=== PATIENT | female | born 1935 | race Caucasian/White ===

== ENCOUNTER 2023-01-05 23:34 | Inpatient (IN) ==
[2023-01-05] MEDS ORDERED: IOPAMIDOL 100 ML BOTTLE IV ONE (23:35)
--- NOTE | 2023-01-05 23:56 | Emergency Department Note ---
HPI General Chief complaint: Nausea/Vomiting/Diarrhea Stated complaint: vomiting Time Seen by Provider: 01/05/23 23:55 Source: patient and EMS Mode of arrival: ambulatory Limitations: no limitations History of Present Illness HPI Narrative: Patient is an 87-year-old female with a complex history, but importantly history of abdominal surgery who presents to the emergency department due to nausea and vomiting. Patient states that she had a meal of beans and sausage for lunch, and soon after that began to have a pressure-like abdominal pain. She states that this is in the epigastric region and without radiation. She states that she then had a large bowel movement which seemed to improve her symptoms. She t hen developed nausea and vomiting. EMS was then called. They gave her Zofran. She states that she felt better by the time she arrived to the emergency department, but then started to have pressure-like abdominal pain again, as well as nausea. She denies any other symptoms or concerns. Related Data Home Medications Medication Instructions Recorded Confirmed latanoprost 0.005 % eye drops 1 drp ophthalmic (eye) QPM 03/30/19 01/05/23 sennosides 8.6 mg tablet (Senna 8.6 mg PO BID PRN 03/30/19 01/05/23 Lax) calcium carbonate 600 mg calcium 1,200 mg PO QDAY 09/09/20 01/05/23 (1,500 mg) tablet cholecalciferol (vitamin D3) 50 50 mcg PO QDAY 09/09/20 01/05/23 mcg (2,000 unit) capsule multivitamin with minerals 1 tab PO QDAY 09/09/20 01/05/23 (Multiple Vitamin-Minerals tablet) billberry PO 10/16/20 01/05/23 vit C 250 mg-vit E 90 mg-zinc 40 1 tab PO QAM AND QHS 10/16/20 01/05/23 mg-copper 1 [id number] capsule (PreserVision AREDS-2) potassium chloride 20 mEq 20 meq PO QDAY 06/01/22 01/05/23 tablet,extended release bumetanide 2 mg tablet 2 mg PO QDAY 09/23/22 01/05/23 Previous Rx's Medication Instructions Recorded leg brace (Ankle Support) #2 ea 10/01/22 methotrexate sodium 2.5 mg tablet 15 mg PO QWEEK #24 tabs 12/15/22 folic acid 1 mg tablet 2 mg PO QDAY #180 tabs 12/21/22 Allergies Allergy/AdvReac Type Severity Reaction Status Date / Time Fludrocortisone Allergy Intermediate Unknown Verified 01/05/23 08:52 jitendra Allergy Intermediate Unknown Verified 01/05/23 08:52 Procaine [From Novocain] Allergy Intermediate Vomiting Verified 01/05/23 08:52 aloe vera AdvReac Intermediate skin Verified 01/05/23 08:52 irritation bacitracin AdvReac Intermediate skin Verified 01/05/23 08:52 [From Neosporin irritant ([id number])] Neomycin AdvReac Intermediate skin Verified 01/05/23 08:52 [From Neosporin irritant ([id number])] polymyxin B AdvReac Intermediate skin Verified 01/05/23 08:52 [From Neosporin irritant ([id number])] Review of Systems ROS ROS Narrative: Narrative: Constitutional: Denies fever or weakness ENT ED: Denies throat pain or rhinorrhea Cardiovascular: Denies chest pain, dyspnea on exertion, orthopnea or edema Respiratory: Denies shortness of breath or cough Gastrointestinal: Reports abdominal pain, nausea and vomiting; Denies diarrhea, constipation, hematochezia, melena or hematemesis Musculoskeletal: Denies back pain or myalgia Integumentary: Denies rash or lesions Neurological: Denies headache, weakness, numbness or dizziness PFS Narrative Patient History Narrative: Narrative: Medical/Surgical/Family History All Active Problems (Updated 01/06/23 @ 05:02 by Prasanth Madsen MD) Midgut volvulus (Acute) Abdominal pain (Acute) Nausea & vomiting (Acute) Abdominal pain (Acute) Syncope due to orthostatic hypotension (Chronic) Fibula fracture (Chronic) Insomnia (Chronic) Polymyalgia rheumatica (Chronic) Dizzy spells (Chronic) Hx of appendectomy (Chronic) History of left oophorectomy (Chronic) Ankle sprain and strain (Chronic) Right foot strain (Chronic) Osteoporosis (Chronic) Routine gynecological examination (Chronic) Hypovitaminosis D (Chronic) Left wrist pain (Chronic) Rupture of tendon of finger (Chronic) Pedal edema (Chronic) Osteoarthritis (Chronic) Wrist pain, chronic (Chronic) penitentiary (current) use of systemic steroids (Chronic) History of calcium pyrophosphate deposition disease (CPPD) (Chronic) Inflammatory arthritis (Chronic) Encounter for long-term current use of high risk medication (Chronic) Pain and swelling of toe of right foot (Chronic ~08/16/20) Rheumatoid arthritis (Chronic) Exudative age-related macular degeneration, bilateral, stage unspecified (Chronic) Livedo reticularis (Chronic) Orthostatic hypotension (Chronic) Acute on chronic diastolic (congestive) heart failure (Chronic) Edema, lower extremity (Chronic) GERD (gastroesophageal reflux disease) (Chronic) History of right oophorectomy (Chronic) History of surgery on right wrist (Chronic) History of hand surgery (Chronic) Pain in right toe(s) (Chronic) Hypotension (Chronic) Chronic cough (Chronic) Vitamin D deficiency (Acute) Pain in wrist (Acute) Pulmonary infiltrate (Acute) Bronchiectasis (Chronic) Heart murmur (Acute) Acute URI (Acute) Viral illness (Acute) History of COVID-19 (Acute) Decreased GFR (Acute) Disorder of diaphragm (Chronic) Difficulty clearing secretions (Chronic) Calcium pyrophosphate deposition disease (CPPD) (Acute) Bilateral foot-drop (Acute) Medical History Acute on chronic diastolic (congestive) heart failure Ankle sprain and strain Chronic cough Decreased GFR Dizzy spells 03/16 Edema, lower extremity Encounter for long-term current use of high risk medication Exudative age-related macular degeneration, bilateral, stage unspecified Fibula fracture Fracture closed, fibula, shaft GERD (gastroesophageal reflux disease) Heart murmur History of calcium pyrophosphate deposition disease (CPPD) History of COVID-19 Hypotension Inflammatory arthritis Insomnia 2014 Left wrist pain Livedo reticularis penitentiary (current) use of systemic steroids Long-term current use of steroids Orthostatic hypotension Osteoarthritis Pain and swelling of toe of right foot (~08/16/20) Pain in right toe(s) Polymyalgia rheumatica Pulmonary infiltrate Rheumatoid arthritis Right foot strain Rupture of tendon of finger Syncope due to orthostatic hypotension Wrist pain, chronic Surgical History History of hand surgery Left finger tendon repair History of left oophorectomy 1968 History of right oophorectomy History of surgery on right wrist Cyst Removal Hx of appendectomy 1968 Family History Sister Malignant neoplasm of breast Heart problem Mother Diabetes mellitus type I Father Parkinsons Brother Heart problem Son Brain aneurysm Other Cancer Glaucoma Macular degeneration Social History Smoking Status: Never smoker Alcohol Intake Frequency: does not drink Substance Use: does not use Exam Narrative Narrative: Narrative: General Limitations: no limitations General appearance: Present alert and in no apparent distress; Absent anxious, appears intoxicated or sleepy Head Head: Present atraumatic and normocephalic Eye Eye: Present EOMI; Absent scleral icterus or nystagmus ENT ENT: Present mucous membranes moist; Absent nasal congestion Neck Neck: Present full ROM and trachea midline Chest Chest: Present normal inspection and symmetric chest wall rise Respiratory Respiratory: Present normal lung sounds bilaterally; Absent respiratory distress, rales/crackles, wheezes, stridor or accessory muscle use Cardiovascular Cardiovascular: Present regular rate, normal rhythm and normal heart sounds Adbominal Abdominal: Present soft, tenderness, guarding and normal bowel sounds; Absent distention, rebound or rigidity Extremities Extremities: Present normal inspection and full ROM Back Back: Present normal inspection and full ROM; Absent CVA tenderness (R) or CVA tenderness (L) Neurological Neurological: Present alert and oriented X3 Psychiatric Psychiatric: Present normal affect and normal mood Skin Skin: Present warm (WNL), dry and normal color Course Vital Signs Vital signs: Vital Signs Temperature 97.4 F 01/05/23 23:35 Pulse Rate 65 01/05/23 23:35 Respiratory Rate 16 01/05/23 23:35 Blood Pressure 130/66 01/05/23 23:35 Pulse Oximetry (%) 100 01/05/23 23:35 Oxygen Delivery Method Room Air 01/05/23 23:35 Temperature 97.4 F 01/05/23 23:35 Pulse Rate 63 01/06/23 04:56 Respiratory Rate 14 01/06/23 04:56 Blood Pressure 141/73 01/06/23 04:46 Pulse Oximetry (%) 96 01/06/23 04:56 Oxygen Delivery Method Room Air 01/05/23 23:35 [facility] MDM Narrative Medical decision making narrative: Narrative: Patient is an 87-year-old female who presents to the emergency department due to nausea, vomiting, and abdominal pain. Differential diagnoses include small bowel obstruction, gastroenteritis, gastritis, peptic ulcer disease, pancreatitis, urinary tract infection, and gallbladder disease. 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 There is also significant and you have in the mesenteric fat. Patient's lactate is not elevated. Labs are also otherwise reassuring. I have called and spoke to Dr. Lopez with seen patient and agrees with admission at this time. Lab Data 01/06/23 00:18 01/06/23 00:18 Labs: Lab Results 01/06/23 01/06/23 01/06/23 Range/Units 00:18 00:18 00:18 WBC 8.6 (4.5-11.0) K/mcL RBC 3.59 (3.59-5.38) M/mcL Hgb 11.7 (11.2-15.7) g/dL Hct 36.2 (34.1-44.9) % MCV 100.8 H (80.0-100.0) fL MCH 32.6 (26.0-34.0) pg MCHC 32.3 (31.0-36.0) g/dL RDW 14.4 (11.5-14.5) % Plt Count 157 (140-440) K/mcL MPV 12.7 H (8.8-12.5) fL Immature Gran % (Auto) 0.3 (0.0-0.5) % Neut % (Auto) 82.2 H (38.0-78.0) % Lymph % (Auto) 9.2 L (15.5-49.0) % [place] % (Auto) 6.7 (1.0-12.0) % Eos % (Auto) 1.0 (0.0-7.0) % Baso % (Auto) 0.6 (0.0-2.0) % Lymph # (Auto) 0.79 L (1.50-4.80) K/mcL [place] # (Auto) 0.58 (0.10-0.90) K/mcL Eos # (Auto) 0.09 (0.00-0.70) K/mcL Baso # (Auto) 0.05 (0.00-0.30) K/mcL Immature Gran # 0.03 (0.00-0.05) K/mcl Absolute Neutrophils 7.07 (1.80-8.00) K/mcL POC VBG pH (7.32-7.42) POC VBG pCO2 at Temp (41-51) POC VBG pO2 (25-40) POC VBG HCO3 (24-28) POC VBG Total CO2 (25-29) POC Venous O2 Sat (40-70) POC VBG Base Excess (-2-2) VBG Lactic Acid (0.5-2) Sodium 132 L (133-145) mmol/L Potassium 3.9 (3.3-5.1) mmol/L Chloride 99 (96-108) mmol/L Carbon Dioxide 26 (22-30) mmol/L Anion Gap 7.0 L (8.0-16.0) BUN 19 (8-23) mg/dL Creatinine 0.9 (0.6-1.1) mg/dL GFR Calculation 57 Glucose 132 H (70-105) mg/dL Calcium 8.8 (8.6-10.4) mg/dL Total Bilirubin 0.3 (0.1-1.0) mg/dL AST 21 (<32) U/L ALT 14 (<40) U/L Alkaline Phosphatase 68 (39-117) U/L Troponin T < 0.01 (<0.03) ng/mL Total Protein 5.6 L (5.9-8.4) gm/dL Albumin 3.3 (3.2-5.2) gm/dL Globulin 2.3 (2.2-3.7) gm/dL Albumin/Globulin Ratio 1.4 (1.0-2.3) Lipase 52 (7-60) U/L 01/06/23 01/06/23 Range/Units 02:17 03:46 WBC (4.5-11.0) K/mcL RBC (3.59-5.38) M/mcL Hgb (11.2-15.7) g/dL Hct (34.1-44.9) % MCV (80.0-100.0) fL MCH (26.0-34.0) pg MCHC (31.0-36.0) g/dL RDW (11.5-14.5) % Plt Count (140-440) K/mcL MPV (8.8-12.5) fL Immature Gran % (Auto) (0.0-0.5) % Neut % (Auto) (38.0-78.0) % Lymph % (Auto) (15.5-49.0) % [place] % (Auto) (1.0-12.0) % Eos % (Auto) (0.0-7.0) % Baso % (Auto) (0.0-2.0) % Lymph # (Auto) (1.50-4.80) K/mcL [place] # (Auto) (0.10-0.90) K/mcL Eos # (Auto) (0.00-0.70) K/mcL Baso # (Auto) (0.00-0.30) K/mcL Immature Gran # (0.00-0.05) K/mcl Absolute Neutrophils (1.80-8.00) K/mcL POC VBG pH 7.36 (7.32-7.42) POC VBG pCO2 at Temp 52.4 H (41-51) POC VBG pO2 28 (25-40) POC VBG HCO3 29.6 H (24-28) POC VBG Total CO2 31.0 H (25-29) POC Venous O2 Sat 49.0 (40-70) POC VBG Base Excess 4.0 H* (-2-2) VBG Lactic Acid 0.8 1.5 (0.5-2) Sodium (133-145) mmol/L Potassium (3.3-5.1) mmol/L Chloride (96-108) mmol/L Carbon Dioxide (22-30) mmol/L Anion Gap (8.0-16.0) BUN (8-23) mg/dL Creatinine (0.6-1.1) mg/dL GFR Calculation Glucose (70-105) mg/dL Calcium (8.6-10.4) mg/dL Total Bilirubin (0.1-1.0) mg/dL AST (<32) U/L ALT (<40) U/L Alkaline Phosphatase (39-117) U/L Troponin T (<0.03) ng/mL Total Protein (5.9-8.4) gm/dL Albumin (3.2-5.2) gm/dL Globulin (2.2-3.7) gm/dL Albumin/Globulin Ratio (1.0-2.3) Lipase (7-60) U/L EKG Data EKG #1: EKG attestation: Yes I reviewed and interpreted this EKG. EKG results narrative: Sinus bradycardia with a rate of 57, equivocal axis, NE of 258, QRS of 118, QTc of 430, T wave flattening in aVL, and absence of ST elevation or depression. Discharge Plan Patient/Caregiver Discharge Instructions Pt seen by [employer]/PA only: No Clinical Impression: Midgut volvulus, Abdominal pain, Nausea & vomiting Patient Disposition: Xfer As Inpt ([facility]) Follow up with: Roland Alvarado DO [Primary Care Provider] - Prescriptions: No Action (DME) Ankle Support Misc See Rx Instructions .Route Qty: 2 0RF Rx Instructions: As directed methotrexate sodium 2.5 mg tablet 15 mg PO QWEEK Qty: 24 0RF latanoprost 0.005 % drops 1 drp OPHTHALMIC QPM sennosides [Senna Lax] 8.6 mg tablet 8.6 mg PO BID PRN multivitamin with minerals [Multiple Vitamin-Minerals] Tablet 1 tab PO QDAY calcium carbonate 600 mg calcium (1,500 mg) tablet 1,200 mg PO QDAY cholecalciferol (vitamin D3) 50 mcg (2,000 unit) capsule 50 mcg PO QDAY potassium chloride 20 mEq tablet extended release 20 meq PO QDAY bumetanide 2 mg tablet 2 mg PO QDAY billberry PO PreserVision AREDS-2 250-90-40-1 mg capsule 1 tab PO QAM AND QHS folic acid 1 mg tablet 2 mg PO QDAY Qty: 180 0RF
[2023-01-06] MEDS ORDERED: ONDANSETRON 4 MG ODT TABLET SL ONE (00:10)
[2023-01-06] MEDS ORDERED: 0.9 % SODIUM CHLORIDE 500 ML IV ONE (00:31)
[2023-01-06] MEDS ORDERED: METOCLOPRAMIDE 10 MG/2 ML VIAL IV ONE (00:31)
[2023-01-06 02:09] LABS: Basophils # (Auto) 0.05 K/mcL (0.00-0.30); Basophils % (Auto) 0.6 % (0.0-2.0); Eosinophils # (Auto) 0.09 K/mcL (0.00-0.70); Hematocrit 36.2 % (34.1-44.9); Hemoglobin 11.7 g/dL (11.2-15.7); Lymphocytes # (Auto) 0.79 K/mcL (1.50-4.80); Lymphocytes % (Auto) 9.2 % (15.5-49.0); Mean Cell Volume 100.8 fL (80.0-100.0); Mean Corpuscular HGB Conc 32.3 g/dL (31.0-36.0); Mean Platelet Volume 12.7 fL (8.8-12.5); Monocytes # (Auto) 0.58 K/mcL (0.10-0.90); Monocytes % (Auto) 6.7 % (1.0-12.0); Neutrophils % (Auto) 82.2 % (38.0-78.0); Platelet Count 157 K/mcL (140-440); RBC 3.59 M/mcL (3.59-5.38); Red Cell Distribution Width 14.4 % (11.5-14.5); WBC 8.6 K/mcL (4.5-11.0)
[2023-01-06 02:29] LABS: ALT/SGPT 14 U/L (<40); AST/SGOT 21 U/L (<32); Albumin 3.3 gm/dL (3.2-5.2); Albumin/Globulin Ratio 1.4 (1.0-2.3); Alkaline Phosphatase 68 U/L (39-117); Bilirubin,Total 0.3 mg/dL (0.1-1.0); Blood Urea Nitrogen 19 mg/dL (8-23); Calcium 8.8 mg/dL (8.6-10.4); Carbon Dioxide 26 mmol/L (22-30); Chloride 99 mmol/L (96-108); Globulin 2.3 gm/dL (2.2-3.7); Glomerular Filtration Rate 57; Glucose 132 mg/dL (70-105)
[2023-01-06] MEDS ORDERED: PIPERACILLIN SODIUM/TAZOBACTAM 3.375 GM in DEXTROSE 5% IN WATER 50 ML IV ONE (02:38)
--- NOTE | 2023-01-06 03:29 | General Surgery Consult Note ---
HPI Date of Consult Consult Date: 01/06/23 Requesting physician: Prasanth Madsen Primary Care Provider: Roland Alvarado DO Consult Narrative Chief complaint: Abdominal Pain Reason for consult: Abdominal Pain History of present illness: Kae is seen in consultation tonight after presenting to the ER with abrupt onset of pressure and pain in the abdomen that she feels developed in direct relationship to a large meal of kidney beans that she had just prior to that. She had vomiting at the house with severe pain and pressure in the abdomen followed by an explosive BM. 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 She received a dose of Reglan but no narcotic and since that time feels she has had full resolution of the pressure and pain she was having and now feels as if it is fully resolved . She has no pain currently and the severe pressure sensation has resolved as well. Vital signs have been normal here and her Venous lactate was normal at 0.8 She has a remote history of abdominal surgery with an Oophorectomy many years ago but no abdominal operations since. She is not on any oral anticoagulants. She has had several orthopedic operations but no recent surgery and she lives at home alone. cc:: CC: Constitutional Additional comments: has been well, denies any recent changes Cardiovascular Additional comments: denies recent chest pains or other issues Respiratory Additional comments: no recent SOB or cough Gastrointestinal Additional comments: see HPI Genitourinary Additional comments: no changes Musculoskeletal Additional comments: no recent changes Integumentary Additional comments: no recent changes Neurological Additional comments: no changes Psychiatric Additional comments: no recent issues or changes Hematologic/Lymphatic Additional comments: no known bleeding concerns PFSH PFSH All Active Problems (Updated 01/06/23 @ 03:36 by Johnny Lopez MD) Abdominal pain (Acute) Syncope due to orthostatic hypotension (Chronic) Fibula fracture (Chronic) Insomnia (Chronic) Polymyalgia rheumatica (Chronic) Dizzy spells (Chronic) Hx of appendectomy (Chronic) History of left oophorectomy (Chronic) Ankle sprain and strain (Chronic) Right foot strain (Chronic) Osteoporosis (Chronic) Routine gynecological examination (Chronic) Hypovitaminosis D (Chronic) Left wrist pain (Chronic) Rupture of tendon of finger (Chronic) Pedal edema (Chronic) Osteoarthritis (Chronic) Wrist pain, chronic (Chronic) 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) History of calcium pyrophosphate deposition disease (CPPD) (Chronic) Inflammatory arthritis (Chronic) Encounter for long-term current use of high risk medication (Chronic) Pain and swelling of toe of right foot (Chronic ~08/16/20) Rheumatoid arthritis (Chronic) Exudative age-related macular degeneration, bilateral, stage unspecified (Chronic) Livedo reticularis (Chronic) Orthostatic hypotension (Chronic) Acute on chronic diastolic (congestive) heart failure (Chronic) Edema, lower extremity (Chronic) GERD (gastroesophageal reflux disease) (Chronic) History of right oophorectomy (Chronic) History of surgery on right wrist (Chronic) History of hand surgery (Chronic) Pain in right toe(s) (Chronic) Hypotension (Chronic) Chronic cough (Chronic) Vitamin D deficiency (Acute) Pain in wrist (Acute) Pulmonary infiltrate (Acute) Bronchiectasis (Chronic) Heart murmur (Acute) Acute URI (Acute) Viral illness (Acute) History of COVID-19 (Acute) Decreased GFR (Acute) Disorder of diaphragm (Chronic) Difficulty clearing secretions (Chronic) Calcium pyrophosphate deposition disease (CPPD) (Acute) Bilateral foot-drop (Acute) Medical History Acute on chronic diastolic (congestive) heart failure Ankle sprain and strain Chronic cough Decreased GFR Dizzy spells 03/16 Edema, lower extremity Encounter for long-term current use of high risk medication Exudative age-related macular degeneration, bilateral, stage unspecified Fibula fracture Fracture closed, fibula, shaft GERD (gastroesophageal reflux disease) Heart murmur History of calcium pyrophosphate deposition disease (CPPD) History of COVID-19 Hypotension Inflammatory arthritis Insomnia 2014 Left wrist pain Livedo reticularis [facility] (current) use of systemic steroids Long-term current use of steroids Orthostatic hypotension Osteoarthritis Pain and swelling of toe of right foot (~08/16/20) Pain in right toe(s) Polymyalgia rheumatica Pulmonary infiltrate Rheumatoid arthritis Right foot strain Rupture of tendon of finger Syncope due to orthostatic hypotension Wrist pain, chronic Surgical History History of hand surgery Left finger tendon repair History of left oophorectomy 1968 History of right oophorectomy History of surgery on right wrist Cyst Removal Hx of appendectomy 1968 Family History Sister Malignant neoplasm of breast Heart problem Mother Diabetes mellitus type I Father Parkinsons Brother Heart problem Son Brain aneurysm Other Cancer Glaucoma Macular degeneration Social History marital status: occupational status: retired other: Children-1 physical activity: other details: stretching smoking status: Never smoker alcohol intake frequency: does not drink substance use type: does not use MEDS/ALLERGIES Home Medications and Allergies Home Medications Medication Instructions Recorded Confirmed Type latanoprost 0.005 % eye drops 1 drp ophthalmic (eye) QPM 03/30/19 01/05/23 History sennosides 8.6 mg tablet (Senna 8.6 mg PO BID PRN 03/30/19 01/05/23 History Lax) calcium carbonate 600 mg calcium 1,200 mg PO QDAY 09/09/20 01/05/23 History (1,500 mg) tablet cholecalciferol (vitamin D3) 50 50 mcg PO QDAY 09/09/20 01/05/23 History mcg (2,000 unit) capsule multivitamin with minerals 1 tab PO QDAY 09/09/20 01/05/23 History (Multiple Vitamin-Minerals tablet) billberry PO 10/16/20 01/05/23 History vit C 250 mg-vit E 90 mg-zinc 40 1 tab PO QAM AND QHS 10/16/20 01/05/23 History mg-copper 1 [id number] capsule (PreserVision AREDS-2) potassium chloride 20 mEq 20 meq PO QDAY 06/01/22 01/05/23 History tablet,extended release bumetanide 2 mg tablet 2 mg PO QDAY 09/23/22 01/05/23 History leg brace (Ankle Support) #2 ea 10/01/22 01/05/23 Rx methotrexate sodium 2.5 mg tablet 15 mg PO QWEEK #24 tabs 12/15/22 01/05/23 Rx folic acid 1 mg tablet 2 mg PO QDAY #180 tabs 12/21/22 01/05/23 Rx Allergies Allergy/AdvReac Type Severity Reaction Status Date / Time Fludrocortisone Allergy Intermediate Unknown Verified 01/05/23 08:52 jitendra Allergy Intermediate Unknown Verified 01/05/23 08:52 Procaine [From Novocain] Allergy Intermediate Vomiting Verified 01/05/23 08:52 aloe vera AdvReac Intermediate skin Verified 01/05/23 08:52 irritation bacitracin AdvReac Intermediate skin Verified 01/05/23 08:52 [From Neosporin irritant ([id number])] Neomycin AdvReac Intermediate skin Verified 01/05/23 08:52 [From Neosporin irritant ([id number])] polymyxin B AdvReac Intermediate skin Verified 01/05/23 08:52 [From Neosporin irritant ([id number])] Physical Examination Vital Signs Vital signs: Temp Pulse Resp BP Pulse Ox O2 Del Method 97.4 F 69 26 H 120/66 97 Room Air 01/05/23 23:35 01/06/23 02:45 01/06/23 02:45 01/06/23 01:05 01/06/23 02:45 01/05/23 23:35 General physical appearance General physical exam: other (looks non toxic, fully conversant ) Eyes Eye exam: normal ocular movement; negative icteric ENT ENT exam: other (normal facial exam ) Head Head exam IM: Present atraumatic, normal inspection and normocephalic Neck Neck exam: trachea midline and no lymphadenopathy Cardiovascular Cardiovascular exam IM: Present normal rate and rhythm Respiratory Respiratory exam: normal respiratory effort Abdomen Abdomen: Present soft (belly soft and non tender, non distended, no mass or ot her significant finding of note ) Integumentary Integumentary: Present other (normal appearing intact skin ) Neurologic Neurologic: Present other (grossly intact ) Psychiatric Psychiatric: Present oriented to time, oriented to person and oriented to place Results Labs 01/06/23 00:18 01/06/23 00:18 Labs: Abnormal lab results 01/06/23 01/06/23 01/06/23 Range/Units 00:18 00:18 02:17 MCV 100.8 H (80.0-100.0) fL MPV 12.7 H (8.8-12.5) fL Neut % (Auto) 82.2 H (38.0-78.0) % Lymph % (Auto) 9.2 L (15.5-49.0) % Lymph # (Auto) 0.79 L (1.50-4.80) K/mcL POC VBG pCO2 at Temp 52.4 H (41-51) POC VBG HCO3 29.6 H (24-28) POC VBG Total CO2 31.0 H (25-29) POC VBG Base Excess 4.0 H* (-2-2) Sodium 132 L (133-145) mmol/L Anion Gap 7.0 L (8.0-16.0) Glucose 132 H (70-105) mg/dL Total Protein 5.6 L (5.9-8.4) gm/dL Diabetes panel 01/06/23 Range/Units 00:18 Sodium 132 L (133-145) mmol/L Potassium 3.9 (3.3-5.1) mmol/L Chloride 99 (96-108) mmol/L Carbon Dioxide 26 (22-30) mmol/L BUN 19 (8-23) mg/dL Creatinine 0.9 (0.6-1.1) mg/dL Glucose 132 H (70-105) mg/dL Calcium 8.8 (8.6-10.4) mg/dL AST 21 (<32) U/L ALT 14 (<40) U/L Alkaline Phosphatase 68 (39-117) U/L Total Protein 5.6 L (5.9-8.4) gm/dL Albumin 3.3 (3.2-5.2) gm/dL Calcium panel 01/06/23 Range/Units 00:18 Calcium 8.8 (8.6-10.4) mg/dL Albumin 3.3 (3.2-5.2) gm/dL Pituitary panel 01/06/23 Range/Units 00:18 Sodium 132 L (133-145) mmol/L Potassium 3.9 (3.3-5.1) mmol/L Chloride 99 (96-108) mmol/L Carbon Dioxide 26 (22-30) mmol/L BUN 19 (8-23) mg/dL Creatinine 0.9 (0.6-1.1) mg/dL Glucose 132 H (70-105) mg/dL Calcium 8.8 (8.6-10.4) mg/dL Adrenal panel 01/06/23 Range/Units 00:18 Sodium 132 L (133-145) mmol/L Potassium 3.9 (3.3-5.1) mmol/L Chloride 99 (96-108) mmol/L Carbon Dioxide 26 (22-30) mmol/L BUN 19 (8-23) mg/dL Creatinine 0.9 (0.6-1.1) mg/dL Glucose 132 H (70-105) mg/dL Calcium 8.8 (8.6-10.4) mg/dL Total Bilirubin 0.3 (0.1-1.0) mg/dL AST 21 (<32) U/L ALT 14 (<40) U/L Alkaline Phosphatase 68 (39-117) U/L Total Protein 5.6 L (5.9-8.4) gm/dL Albumin 3.3 (3.2-5.2) gm/dL All other labs normal. A/P Assessment and plan (1) Abdominal pain: Assessment and plan: Probable adhesion related intra abdominal event with concerning findings on CT She had abrupt onset earlier this evening and now feels as though she has had full resolution with resolution of pain and both a normal exam and normal venous lactate at this time Concerns and options are discussed with her at length tonight regarding proceeding to the OR right now vs a period of close in hospital observation now that she feels and seems clinically resolved. Given that her presenting symptoms seem resolved, she would prefer to give this some time and see how things go over the next few hours rather than proceeding urgently to the OR and this seems reasonable given how benign she currently appears Admit to the hospital for close observation along with intermittently repeated venous lactate along with NGT bowel decompression, bowel rest, judicious IVFs and will ask for a Medical Consult in the AM given some of her associated medical issues. Will continue to hold any narcotic for now and will initiate IV ABs empirically as well. Status: Acute Time Spent With Patient Time: Total time spent is greater than 50% in coordination of care (as documented) at patient's floor/unit and/or counseling patient:
[2023-01-06] MEDS ORDERED: ONDANSETRON 4 MG/2 ML VIAL IV PRN (04:02)
[2023-01-06] MEDS: PIPERACILLIN SODIUM/TAZOBACTAM 3.375 GM in DEXTROSE 5% IN WATER 50 ML IV SCH ×4 (04:46→21:53)
--- NOTE | 2023-01-06 05:32 | Cat Scan Report ---
INDICATION: Abdominal pain/tenderness, diffuse COMPARISON: Previous contrast enhanced CT scan dated 09/21/2014 TECHNIQUE: Axial images were obtained through the abdomen and pelvis. Sagittally and coronally reformatted images. 80 mL Isovue 370 injected intravenously. FINDINGS: Examination was initially interpreted by [facility] There is dilatation of the stomach. Stomach is fluid filled. Proximal duodenum is dilated and filled with fluid. There is a volvulus which involves the superior mesenteric artery and vein. The superior mesenteric vein was a large caliber vessel on prior CT scan but is very difficult to visualize presently consistent with mechanical compression from this volvulus. There is prominent mesenteric edema. There is some small bowel wall thickening but no nonperfused small bowel segments are demonstrated. Patient is at risk for small bowel infarction. Correlation with serum lactic acid is recommended. Superior mesenteric artery remains well perfused. 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 There is no pneumoperitoneum. No focal mesenteric fluid collection or abscess. Lung bases:Probable mild atelectasis at the right lung base. No parenchymal consolidation. There is cardiomegaly. Liver:No focal hepatic mass. Liver contour is smooth Gallbladder, bilary:Previous cholecystectomy. There is intra and extrahepatic bile duct dilatation. Spleen:No splenomegaly. Normal enhancement of splenic and portal veins. Pancreas:No pancreatic mass. No peripancreatic abnormality Adrenal glands:Negative Kidneys,ureters,bladder:No solid renal mass. No hydronephrosis. No obstructing or nonobstructing calculi. No hydroureter. No ureteral calculus. No bladder stone. No detectable bladder mass. Gastrointestinal:No detectable colonic mass. There is no diverticulitis. As described above. It is markedly edematous but small bowel appears perfused without evidence for small bowel infarction. There is no mechanical small bowel obstruction Dilated fluid-filled stomach and proximal duodenum. No localized wall thickening. No pneumatosis. Appendix: The appendix is not optimally demonstrated. No evidence for appendicitis Vascular:There is atherosclerotic calcification of the abdominal aorta. No abdominal aortic aneurysm. Origins of the celiac trunk and superior mesenteric artery are normal. As described above there is a mid volvulus. Arterial branches from the celiac trunk and superior mesenteric artery are opacified. Superior mesenteric vein is not well visualized consistent with mechanical compression. Splenic and portal veins appear normal. Lymphatic:No retroperitoneal or mesenteric adenopathy Mesentery, peritoneum: Prominent mesenteric edema. No pneumoperitoneum. Reproductive:Uterus is retroflexed. No adnexal mass Musculoskeletal:Multilevel degenerative disc disease. No compression fractures. Sacrum and pelvis are negative. No abdominal wall or inguinal hernia IMPRESSION: 1. Findings consistent with midgut volvulus. Poor visualization of the superior mesenteric vein as described above 2. Dilated fluid-filled stomach and duodenum 3. Extensive mesenteric edema. There is no pneumatosis or pneumoperitoneum. No intra-abdominal abscess. 4. Some small bowel segments demonstrate mild mural edema. There is no definite nonperfused small bowel. 5. Previous cholecystectomy. Mild intra and extrahepatic bile duct dilatation The exam was performed using radiation dose optimization techniques including, but not limited to, automated exposure control, adjustment of the mA and/or kV according to patient size and use of iterative reconstruction technique. Interpreted and Authenticated by: Brad Gallegos 01/06/23
--- NOTE | 2023-01-06 05:33 | XRay Report ---
INDICATION: NG placement TECHNIQUE: Supine abdomen. COMPARISON: Previous CT scan dated 01/06/2023 FINDINGS: There is an esophagogastric tube with its tip at the level of the diaphragm. May be within the proximal stomach but should be advanced. There is bowel gas within colon and small bowel. Distended stomach is not visualized on this examination IMPRESSION: Esophagogastric tube may be within the proximal most stomach but should be advanced Interpreted and Authenticated by: Brad Gallegos 01/06/23
[2023-01-06] MEDS: DEXTROSE 5%-LR 1,000 ML IV SCH ×2 (05:53→15:42)
--- NOTE | 2023-01-06 08:17 | XRay Report ---
INDICATION: NG Tube advanced from 55cm to 65cm in Right Nare TECHNIQUE: Supine abdomen. COMPARISON: Previous examination dated 01/06/2023 FINDINGS:Esophagogastric tube was advanced. It is now controlled back but the tip appears to be within the gastric fundus, better positioned than on previous examination. IMPRESSION: Esophagogastric tube within the proximal stomach Interpreted and Authenticated by: Brad Gallegos 01/06/23
--- NOTE | 2023-01-06 08:51 | General Surgery Progress Note ---
SUBJECTIVE Subjective Patient information: Note initiated : 01/06/23 at 6:39 am Service Date, if different from initiated Date: [] Patient: Kae Ortiz a 87 y/o F admitted on 01/06/23 for SBO. Chief Complaint: [] Kae is seen again early this am several hours after her initial evaluation in the ER after development of severe and sudden abdominal pain that prompted her to the ER. A CT Scan done on arrival demonstrated evidence of an adhesion related intra abdominal event but on exam several hours later she felt her symptoms had fully resolved without narcotic. She continues to feel that her belly is back to baseline with passage now of large amounts of gas and NO abdominal pain at this time. Constitutional Vitals: Vital Signs Temp Pulse Resp BP Pulse Ox O2 Del Method 97.4 F 62 16 147/76 97 Room Air 01/06/23 08:00 01/06/23 08:00 01/06/23 05:11 01/06/23 08:00 01/06/23 08:00 01/06/23 08:00 Period Temp Pulse Resp BP Sys/Hughes Pulse Ox O2 Del Method O2 Flow Rate Last 24 Hr 97.4 F-98.2 F 52-77 11-26 92-150/49-79 95-100 Room Air-Room Air Intake and Output 01/05/23 01/06/23 01/06/23 19:59 03:59 11:59 Intake Total 500 50 Balance 500 50 Weight 155 lb 152 lb 11.2 oz Patient Weight 01/07/23 03:59 Weight 152 lb 11.2 oz Intake & Output: Intake & Output 01/05/23 01/06/23 01/06/23 19:59 03:59 11:59 Intake Total 500 50 Balance 500 50 Weight 155 lb 152 lb 11.2 oz Intake: IV 500 50 Sodium Chloride 0.9% 500 ml @ 500 Wide Open IV BOLUS ONE Rx#: [id number] Zosyn 3.375 gm In Dextrose 5% 50 in Water 50 ml @ 100 mls/hr IV ONCE ONE Rx#:[id number] Tube Feeding 0 Other: Stool Size Small Stool Color Brown Stool Consistency Soft Formed # Bowel Movements 1 Exam: looks well, non toxic, NAD Respiratory Respiratory exam: Present normal respiratory exam Cardiovascular Cardiovascular exam: Present normal rate and rhythm and RRR GI/Abdominal Additional comments: soft and non tender, non distended, no mass or other finding Extremities Exam Additional comments: well perfused A/P Assessment and plan (1) Abdominal pain: Assessment and plan: Clinically resolved presumed adhesion related intra abdominal event Continue NGT and bowel rest for now She appears to have resolved this episode and so I don't find any clinical reason to proceed to the OR now despite the worrisome finding seen on the earlier CT but she'll have to continue to be watched closely and may yet require operative intervention which was discussed with her at length If she continues to do otherwise well, will plan SBFT tomorrow to assure no residual obstruction and will proceed to the OR for any recurrence of symptoms Status: Acute Time Spent With Patient Time: Total time spent is greater than 50% in coordination of care (as documented) at patient's floor/unit and/or counseling patient:
[2023-01-06] MEDS: PHENOL/SODIUM PHENOLATE 5 SPRAY BOTTLE 180ML SSP PRN (16:30)
--- NOTE | 2023-01-06 16:57 | General Surgery Progress Note ---
SUBJECTIVE Subjective Patient information: Note initiated : 01/06/23 at 4:52 pm Service Date, if different from initiated Date: [] Patient: Kae Ortiz 87 y/o F admitted on 01/06/23 for SBO. Chief Complaint: [] Follow up check on Kae once again confirms that she feel she has had full resolution of her presenting abdominal symptoms and denies any current pressure or pain. She has been passing gas throughout the day as well Constitutional Vitals: Vital Signs Temp Pulse Resp BP Pulse Ox O2 Del Method 97.7 F 66 16 149/74 97 Room Air 01/06/23 15:51 01/06/23 15:51 01/06/23 12:00 01/06/23 15:51 01/06/23 15:51 01/06/23 15:51 Period Temp Pulse Resp BP Sys/Hughes Pulse Ox O2 Del Method O2 Flow Rate Last 24 Hr 97.4 F-98.2 F 52-77 11-26 92-150/49-79 92-100 Room Air-Room Air Intake and Output 01/06/23 01/06/23 01/06/23 03:59 11:59 19:59 Intake Total 980 526 4516 Balance 173 716 7425 Weight 155 lb 152 lb 11.2 oz Patient Weight 01/07/23 03:59 Weight 152 lb 11.2 oz Intake & Output: Intake & Output 01/06/23 01/06/23 01/06/23 03:59 11:59 19:59 Intake Total 794 684 0485 Balance 287 660 2725 Weight 155 lb 152 lb 11.2 oz Intake: IV 005 829 1296 Sodium Chloride 0.9% 500 ml @ 500 Wide Open IV BOLUS ONE Rx#: [id number] Dextrose 5%-Lactated Ringers 1, 1045 000 ml @ 100 mls/hr IV .Q10H SERGIO Rx#:[id number] Zosyn 3.375 gm In Dextrose 5% 100 in Water 50 ml @ 100 mls/hr IV Q6H SERGIO Rx#:[id number] Oral 0 Tube Feeding 0 Other: Stool Size Small Stool Color Brown Stool Consistency Soft Formed # Bowel Movements 1 Exam: pleasantly conversant, non toxic GI/Abdominal Additional comments: belly is soft and non tender, non distended, entirely benign on exam A/P Assessment and plan (1) Abdominal pain: Assessment and plan: Presumed resolved intra abdominal adhesion related event Continue current mgmt and check SBFT tomorrow to assure no evidence of obstruction prior to NGT removal and initiation of a diet No other issues at this time and doing well Status: Acute Time Spent With Patient Time: Total time spent is greater than 50% in coordination of care (as documented) at patient's floor/unit and/or counseling patient:
[2023-01-06] MEDS: LATANOPROST OPHTH DROPS 2.5ML BOTTLE OU SCH (21:38)
[2023-01-07] MEDS: DEXTROSE 5%-LR 1,000 ML IV SCH ×2 (02:29→11:38)
[2023-01-07] MEDS: PHENOL/SODIUM PHENOLATE 5 SPRAY BOTTLE 180ML SSP PRN (02:32)
[2023-01-07] MEDS: PIPERACILLIN SODIUM/TAZOBACTAM 3.375 GM in DEXTROSE 5% IN WATER 50 ML IV SCH ×4 (04:10→22:25)
[2023-01-07 05:50] LABS: Hematocrit 34.8 % (34.1-44.9); Hemoglobin 11.4 g/dL (11.2-15.7); Mean Cell Volume 99.7 fL (80.0-100.0); Mean Corpuscular HGB Conc 32.8 g/dL (31.0-36.0); Mean Platelet Volume 12.1 fL (8.8-12.5); Platelet Count 150 K/mcL (140-440); RBC 3.49 M/mcL (3.59-5.38); Red Cell Distribution Width 14.6 % (11.5-14.5)
[2023-01-07 06:16] LABS: Blood Urea Nitrogen 9 mg/dL (8-23); Calcium 8.9 mg/dL (8.6-10.4); Carbon Dioxide 28 mmol/L (22-30); Chloride 104 mmol/L (96-108); Glomerular Filtration Rate 66; Glucose 119 mg/dL (70-105)
--- NOTE | 2023-01-07 12:00 | General Surgery Progress Note ---
SUBJECTIVE Subjective Patient information: Note initiated : 01/07/23 at 11:57 am Service Date, if different from initiated Date: [] Patient: Kae Ortiz 87 y/o F admitted on 01/06/23 for SBO. Chief Complaint: [] Doing well, continues to feel that presenting abdominal symptoms have fully reso lved Constitutional Vitals: Vital Signs Temp Pulse Resp BP Pulse Ox O2 Del Method 97.7 F 58 L 18 153/75 95 Room Air 01/07/23 11:46 01/07/23 11:46 01/07/23 02:33 01/07/23 11:46 01/07/23 11:46 01/07/23 11:46 Period Temp Pulse Resp BP Sys/Hughes Pulse Ox O2 Del Method O2 Flow Rate Last 24 Hr 97.5 F-98.4 F 58-71 16-18 130-153/72-77 92-97 Room Air-Room Air Intake and Output 01/06/23 01/07/23 01/07/23 19:59 03:59 11:59 Intake Total 1095 987 500 Output Total 650 Balance 1095 337 500 Weight 153 lb 2 oz Intake & Output: Intake & Output 01/06/23 01/07/23 01/07/23 19:59 03:59 11:59 Intake Total 1095 987 500 Output Total 650 Balance 1095 337 500 Weight 153 lb 2 oz Intake: IV 1095 987 100 Dextrose 5%-Lactated Ringers 1, 1045 937 000 ml @ 100 mls/hr IV .Q10H SERGIO Rx#:[id number] Zosyn 3.375 gm In Dextrose 5% 50 50 100 in Water 50 ml @ 100 mls/hr IV Q6H SERGIO Rx#:[id number] Oral 0 0 400 Output: Gastric Drainage 400 Right Nare NG/OG 400 Void Amount 250 # of times incontinent of urine 0 Other: Urine Appearance Clear Clear Urine Color Yellow Yellow Urine Odor Normal Stool Size Small Stool Color Brown Stool Consistency Formed [place] # Voids 0 1 Exam: looks well, smiling, pleasantly conversant Respiratory Respiratory exam: Present normal respiratory exam Cardiovascular Cardiovascular exam: Present RRR GI/Abdominal Additional comments: soft and non tender, non distended, NGT in place and functional A/P Assessment and plan (1) Abdominal pain: Assessment and plan: Resolving Adhesion Related Intra Abdominal Event Will check SBFT today to assure no evidence of any residual SBO and if negative will D/C NGT and start a diet Issues discussed and reviewed and she's agreeable to that plan Status: Acute Time Spent With Patient Time: Total time spent is greater than 50% in coordination of care (as documented) at patient's floor/unit and/or counseling patient:
[2023-01-07] MEDS ORDERED: DIATRIZOATE MEGLU/DIATRIZO SOD 120 ML BOTTLE PO ONE (14:41)
--- NOTE | 2023-01-07 14:48 | XRay Report ---
INDICATION: eval for SBO TECHNIQUE: Water-soluble contrast material was administered due to this patient's esophagogastric tube. COMPARISON: Previous CT scan dated 01/06/2023 FINDINGS: There is mild dilatation of the stomach. There is marked dilatation of the second and third portions of the duodenum. There is no high-grade obstruction. Opacified small bowel appears normal. There is contrast material in the colon by 1 hour and 45 minutes post ingestion. There is contrast material in the rectum by 3 hours and 30 minutes. IMPRESSION: 1. Dilated duodenum 2. Normal appearance of small bowel. Normal small bowel transit Interpreted and Authenticated by: Brad Gallegos 01/07/23
[2023-01-07] MEDS: LATANOPROST OPHTH DROPS 2.5ML BOTTLE OU SCH (21:27)
[2023-01-08] MEDS: DEXTROSE 5%-LR 1,000 ML IV SCH ×3 (01:03→05:40)
[2023-01-08] MEDS: PIPERACILLIN SODIUM/TAZOBACTAM 3.375 GM in DEXTROSE 5% IN WATER 50 ML IV SCH ×4 (03:37→22:49)
[2023-01-08 06:21] LABS: Hematocrit 36.9 % (34.1-44.9); Hemoglobin 11.9 g/dL (11.2-15.7); Mean Cell Volume 101.4 fL (80.0-100.0); Mean Corpuscular HGB Conc 32.2 g/dL (31.0-36.0); Mean Platelet Volume 11.9 fL (8.8-12.5); Platelet Count 162 K/mcL (140-440); RBC 3.64 M/mcL (3.59-5.38); Red Cell Distribution Width 14.6 % (11.5-14.5); WBC 4.2 K/mcL (4.5-11.0)
[2023-01-08 06:47] LABS: Blood Urea Nitrogen 9 mg/dL (8-23); Calcium 8.8 mg/dL (8.6-10.4); Carbon Dioxide 29 mmol/L (22-30); Chloride 109 mmol/L (96-108); Glomerular Filtration Rate 66; Glucose 97 mg/dL (70-105)
--- NOTE | 2023-01-08 14:17 | General Surgery Progress Note ---
SUBJECTIVE Subjective Patient information: Note initiated : 01/08/23 at 830am Service Date, if different from initiated Date: [] Patient: Kae Ortiz 87 y/o F admitted on 01/06/23 for SBO. Chief Complaint: [] Doing well this am, continues to pass gas and denies all abdominal symptoms Constitutional Vitals: Vital Signs Temp Pulse Resp BP Pulse Ox O2 Del Method 98.1 F 77 16 152/80 95 Room Air 01/08/23 12:00 01/08/23 12:00 01/08/23 12:00 01/08/23 12:00 01/08/23 12:00 01/08/23 12:00 Period Temp Pulse Resp BP Sys/Hughes Pulse Ox O2 Del Method O2 Flow Rate Last 24 Hr 97.0 F-98.4 F 59-77 14-16 145-170/74-92 94-98 Room Air-Room Air Intake and Output 01/08/23 01/08/23 01/08/23 03:59 11:59 19:59 Intake Total 50 100 1000 Output Total 400 700 Balance -350 -600 1000 Intake & Output: Intake & Output 01/08/23 01/08/23 01/08/23 03:59 11:59 19:59 Intake Total 50 100 1000 Output Total 400 700 Balance -350 -600 1000 Intake: IV 50 100 1000 Dextrose 5%-Lactated Ringers 1, 1000 000 ml @ 100 mls/hr IV .Q10H [facility] Rx#:[id number] Zosyn 3.375 gm In Dextrose 5% 50 100 in Water 50 ml @ 100 mls/hr IV Q6H [facility] Rx#:[id number] Output: Gastric Drainage 200 Right Nare NG/OG 200 Void Amount 400 Urine/Stool Mix 500 Other: Urine Appearance Clear Urine Color Yellow Exam: looks well, non toxic, no distress Respiratory Respiratory exam: Present normal respiratory exam Cardiovascular Cardiovascular exam: Present normal rate and rhythm GI/Abdominal Additional comments: soft and non distended, non tender, NGT in place with light drainage Extremities Exam Additional comments: well perfused A/P Assessment and plan (1) Abdominal pain: Assessment and plan: HD #3 post presumed adhesion related intra abdominal event Doing Well SBFT results from yesterday noted and reviewed with radiology Clamp NGT and start clears Status: Acute Time Spent With Patient Time: Total time spent is greater than 50% in coordination of care (as documented) at patient's floor/unit and/or counseling patient:
[2023-01-08] MEDS: LATANOPROST OPHTH DROPS 2.5ML BOTTLE OU SCH (21:00)
[2023-01-08] MEDS: PHENOL/SODIUM PHENOLATE 5 SPRAY BOTTLE 180ML SSP PRN (22:00)
[2023-01-09] MEDS: PIPERACILLIN SODIUM/TAZOBACTAM 3.375 GM in DEXTROSE 5% IN WATER 50 ML IV SCH ×4 (04:00→21:01)
[2023-01-09 06:34] LABS: Hematocrit 34.4 % (34.1-44.9); Hemoglobin 11.1 g/dL (11.2-15.7); Mean Cell Volume 100.9 fL (80.0-100.0); Mean Corpuscular HGB Conc 32.3 g/dL (31.0-36.0); Mean Platelet Volume 11.9 fL (8.8-12.5); Platelet Count 142 K/mcL (140-440); RBC 3.41 M/mcL (3.59-5.38); WBC 4.2 K/mcL (4.5-11.0)
[2023-01-09 06:59] LABS: Blood Urea Nitrogen 8 mg/dL (8-23); Calcium 8.6 mg/dL (8.6-10.4); Carbon Dioxide 27 mmol/L (22-30); Chloride 104 mmol/L (96-108); Glomerular Filtration Rate 78; Glucose 89 mg/dL (70-105)
--- NOTE | 2023-01-09 10:34 | General Surgery Progress Note ---
SUBJECTIVE Subjective Patient information: Note initiated : 01/09/23 at 10:31 am Service Date, if different from initiated Date: [] Patient: Kae Ortiz 87 y/o F admitted on 01/06/23 for SBO. Chief Complaint: [] Has done great with clears and the NGT clamped. Good bowel function and no retu rn of any abdominal symptoms Constitutional Vitals: Vital Signs Temp Pulse Resp BP Pulse Ox O2 Del Method O2 Flow Rate 97.7 F 71 16 141/79 97 Room Air 0 01/09/23 08:00 01/09/23 08:00 01/09/23 08:00 01/09/23 08:00 01/09/23 08:00 01/09/23 08:00 01/09/23 04:00 Period Temp Pulse Resp BP Sys/Hughes Pulse Ox O2 Del Method O2 Flow Rate Last 24 Hr 97.5 F-98.1 F 59-78 16-16 141-157/72-80 93-99 Room Air-Room Air 0-0 Intake and Output 01/08/23 01/09/23 01/09/23 19:59 03:59 11:59 Intake Total 1530 50 350 Output Total 800 500 Balance 730 50 -150 Weight 151 lb Intake & Output: Intake & Output 01/08/23 01/09/23 01/09/23 19:59 03:59 11:59 Intake Total 1530 50 350 Output Total 800 500 Balance 730 50 -150 Weight 151 lb Intake: IV 1050 50 50 Dextrose 5%-Lactated Ringers 1, 1000 000 ml @ 100 mls/hr IV .Q10H [facility] Rx#:[id number] Zosyn 3.375 gm In Dextrose 5% 50 50 50 in Water 50 ml @ 100 mls/hr IV Q6H [facility] Rx#:[id number] Oral 480 300 Output: Urine/Stool Mix 800 500 Other: Meal Dinner Dinner Percent of Meal Consumed 100% 100% Feeding Ability Independent Urine Color Yellow Pale Stool Size Moderate Small Stool Color Brown Brown Stool Consistency Watery Watery Exam: looks well, non toxic Respiratory Respiratory exam: Present normal respiratory exam Cardiovascular Cardiovascular exam: Present RRR GI/Abdominal Additional comments: soft and non tender, non distended Extremities Exam Additional comments: well perfused A/P Assessment and plan (1) Abdominal pain: Assessment and plan: Doing well with continued full resolution of presenting symptoms D/C NGT and advance diet Home tomorrow if does well on regular diet without recurrence of symptoms Status: Acute Time Spent With Patient Time: Total time spent is greater than 50% in coordination of care (as documented) at patient's floor/unit and/or counseling patient:
[2023-01-09] MEDS: LATANOPROST OPHTH DROPS 2.5ML BOTTLE OU SCH (21:01)
[2023-01-10] MEDS: PIPERACILLIN SODIUM/TAZOBACTAM 3.375 GM in DEXTROSE 5% IN WATER 50 ML IV SCH ×4 (04:20→20:09)
[2023-01-10 07:19] LABS: Hematocrit 37.6 % (34.1-44.9); Hemoglobin 12.5 g/dL (11.2-15.7); Mean Cell Volume 98.9 fL (80.0-100.0); Mean Corpuscular HGB Conc 33.2 g/dL (31.0-36.0); Mean Platelet Volume 11.8 fL (8.8-12.5); Platelet Count 174 K/mcL (140-440); Red Cell Distribution Width 13.8 % (11.5-14.5); WBC 3.4 K/mcL (4.5-11.0)
[2023-01-10 07:44] LABS: Blood Urea Nitrogen 6 mg/dL (8-23); Calcium 8.9 mg/dL (8.6-10.4); Carbon Dioxide 27 mmol/L (22-30); Chloride 103 mmol/L (96-108); Glomerular Filtration Rate 66; Glucose 85 mg/dL (70-105)
[2023-01-10] MEDS: DEXTROSE 5%-LR 1,000 ML IV SCH ×2 (09:29→22:41)
[2023-01-10] MEDS ORDERED: IOPAMIDOL 100 ML BOTTLE IV ONE (10:43)
--- NOTE | 2023-01-10 11:41 | Cat Scan Report ---
INDICATION: eval SBO COMPARISON: Previous examination dated 01/06/2023 TECHNIQUE: Axial images were obtained through the abdomen and pelvis. Sagittally and coronally reformatted images. 70 mL Isovue 370 injected intravenously. Oral contrast material was not administered FINDINGS: Lung bases:Negative. No pulmonary parenchymal nodule. No pleural fluid or pericardial fluid Liver:Low density liver consistent with hepatic steatosis. No focal hepatic mass. Gallbladder, bilary:No calcified gallstones. No gallbladder wall thickening. No dilated intra or extrahepatic bile ducts. Spleen:No splenomegaly. Normal enhancement of splenic and portal veins. Pancreas:No pancreatic mass. No peripancreatic abnormality Adrenal glands:Negative Kidneys,ureters,bladder:No solid renal mass. No hydronephrosis. No obstructing or nonobstructing calculi. No hydroureter. No ureteral calculus. No bladder stone. No detectable bladder mass. Gastrointestinal:There is residual contrast material within the colon following small bowel study dated 01/07/2023. There is fluid and gas within the colon. There is gas and fluid within small bowel. No evidence for mechanical small bowel obstruction. There is no nonperfused small bowel or localized wall thickening. No evidence for small bowel ischemia. The cecum is in the right lower quadrant, in appropriate position. Ileocecal valve is normally positioned. The distal sigmoid colon and proximal descending colon are markedly narrowed and pass over the left psoas muscle. 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 This may be considered a limited rotational abnormality. The second portion of the duodenum is markedly distended and measures approximately 7 cm in cross-sectional diameter. This was identified on previous CT scans dated 01/06/2023 and 09/23/2014. This was felt to be secondary to vascular compression of the duodenum. 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 This typically manifests in infants but can be identified in adults as well. 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 Vascular volvulus has resolved with interval resolution of mesenteric edema. 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 There is a history of abdominal surgery and adhesions are possible. This patient gives a history of appendectomy which would not be expected to cause adhesions at the level of the duodenum. This patient appears predisposed to mid gut volvulus which was transient and did not cause mesenteric infarction. Appendix: The appendix is removed Vascular:There is atherosclerotic calcification of the abdominal aorta. No abdominal aortic aneurysm. Superior mesenteric artery is normal. No origin stenosis. There is plaque at the origin of the celiac trunk but no stenosis. The superior mesenteric artery is well opacified. There is no contrast material within the superior mesenteric vein. This is probably temporal as this examination was obtained during arterial phase. The vein is in appropriate position with respect to the superior mesenteric artery. Splenic vein and portal vein enhance normally. Lymphatic:No retroperitoneal or mesenteric adenopathy Mesentery, peritoneum: As described above there is been interval resolution of prominent mesenteric edema There is no intra-abdominal abscess. No pneumoperitoneum. Reproductive:Patient may have had previous hysterectomy. Uterus may be atrophic Musculoskeletal:Multilevel degenerative disc disease. No lumbar compression fractures. Pelvis are negative. No abdominal wall or inguinal hernia IMPRESSION: 1. 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 No mechanical small bowel obstruction 3. Atypical course of the descending colon suggesting a rotational abnormality. No colonic distention 4. Persistent dilatation of the second portion of the duodenum The exam was performed using radiation dose optimization techniques including, but not limited to, automated exposure control, adjustment of the mA and/or kV according to patient size and use of iterative reconstruction technique. Interpreted and Authenticated by: Brad Gallegos 01/10/23
--- NOTE | 2023-01-10 19:32 | General Surgery Progress Note ---
SUBJECTIVE Subjective Patient information: Note initiated : 01/10/23 at 930am Service Date, if different from initiated Date: [] Patient: Kae Ortiz 87 y/o F admitted on 01/06/23 for SBO. Chief Complaint: [] Feels well, denies any pain, tolerating a diet Constitutional Vitals: Vital Signs Temp Pulse Resp BP Pulse Ox O2 Del Method O2 Flow Rate 97.1 F 59 L 16 151/79 99 Room Air 0 01/10/23 16:55 01/10/23 16:55 01/10/23 16:55 01/10/23 16:55 01/10/23 16:55 01/10/23 16:55 01/09/23 04:00 Period Temp Pulse Resp BP Sys/Hughes Pulse Ox O2 Del Method O2 Flow Rate Last 24 Hr 96 F-98.0 F 57-68 16-18 123-157/63-79 94-99 Room Air-Room Air Intake and Output 01/10/23 01/10/23 01/10/23 03:59 11:59 19:59 Intake Total 50 1100 987 Output Total 2950 960 Balance 50 -1850 27 Intake & Output: Intake & Output 01/10/23 01/10/23 01/10/23 03:59 11:59 19:59 Intake Total 50 1100 987 Output Total 2950 960 Balance 50 -1850 27 Intake: IV 50 100 50 Zosyn 3.375 gm In Dextrose 5% 50 100 50 in Water 50 ml @ 100 mls/hr IV Q6H [facility] Rx#:[id number] Oral 1000 237 GI Tube Flush 700 Output: Void Amount 950 950 Urine/Stool Mix 2000 10 Other: Urine Appearance Clear Clear Urine Color Yellow Yellow Pale Pale Urine Odor Normal # Bowel Movements 1 Exam: Looks well, non toxic, NAD Respiratory Respiratory exam: Present normal respiratory exam Cardiovascular Cardiovascular exam: Present RRR GI/Abdominal Additional comments: soft and non tender, mild distension Extremities Exam Additional comments: well perfused Neurological Exam Additional comments: grossly intact A/P Assessment and plan (1) Abdominal pain: Assessment and plan: Continues to feel well but has some mild distension on exam this am Will check CT scan today to assure full ongoing resolution of Midgut Volvulus that was present previously If all looks well on imaging anticipate discharge in AM Status: Acute Time Spent With Patient Time: Total time spent is greater than 50% in coordination of care (as documented) at patient's floor/unit and/or counseling patient:
[2023-01-10] MEDS ORDERED: PANTOPRAZOLE 40 MG TABLET PO SCH (19:33)
[2023-01-10] MEDS: LATANOPROST OPHTH DROPS 2.5ML BOTTLE OU SCH (20:09)
[2023-01-11] MEDS: PIPERACILLIN SODIUM/TAZOBACTAM 3.375 GM in DEXTROSE 5% IN WATER 50 ML IV SCH ×2 (04:04→10:17)
[2023-01-11 06:49] LABS: Hematocrit 34.7 % (34.1-44.9); Hemoglobin 11.5 g/dL (11.2-15.7); Mean Cell Volume 97.7 fL (80.0-100.0); Mean Corpuscular HGB Conc 33.1 g/dL (31.0-36.0); Platelet Count 157 K/mcL (140-440); RBC 3.55 M/mcL (3.59-5.38); Red Cell Distribution Width 13.6 % (11.5-14.5); WBC 2.8 K/mcL (4.5-11.0)
--- NOTE | 2023-01-11 07:44 | EKG ---
[facility] Test Date: 2023-01-05 Pat Name: Kae Ortiz Department: ED Room: Gender: Female [employer] Developer: : [id number] Requested By: Prasanth Madsen Order Number: [id number] Reading MD: Brad Acevedo M.D. Measurements Intervals [place] Rate: 57 P: 18 GA: 258 QRS: -17 QRSD: 118 T: 37 QT: 442 QTc: 430 Interpretive Statements Sinus rhythm FIRST DEGREE AV BLOCK Nonspecific intraventricular conduction delay Low voltage, precordial leads Electronically Signed On 01-11-2023 7:43:59 PDT by Brad Acevedo M.D. /[email or web address]/[id number]
--- NOTE | 2023-01-11 09:41 | General Surgery Progress Note ---
SUBJECTIVE Subjective Patient information: Note initiated : 01/11/23 at 9:37 am Service Date, if different from initiated Date: [] Patient: Kae Ortiz 87 y/o F admitted on 01/06/23 for SBO. Chief Complaint: [] feels well, no issues, doing well. CT scan looked great yesterday with full resolution of the prior volvulus Constitutional Vitals: Vital Signs Temp Pulse Resp BP Pulse Ox O2 Del Method O2 Flow Rate 97.5 F 58 L 16 151/73 95 Room Air 0 01/11/23 07:40 01/11/23 07:40 01/11/23 07:40 01/11/23 07:40 01/11/23 07:40 01/11/23 07:40 01/09/23 04:00 Period Temp Pulse Resp BP Sys/Hughes Pulse Ox O2 Del Method O2 Flow Rate Last 24 Hr 97.1 F-97.5 F 56-61 16-18 143-157/70-83 94-99 Room Air-Room Air Intake and Output 01/10/23 01/11/23 01/11/23 19:59 03:59 11:59 Intake Total 987 1050 700 Output Total 960 3500 Balance 27 1050 -2800 Weight 156 lb Intake & Output: Intake & Output 01/10/23 01/11/23 01/11/23 19:59 03:59 11:59 Intake Total 987 1050 700 Output Total 960 3500 Balance 27 1050 -2800 Weight 156 lb Intake: IV 50 1050 50 Dextrose 5%-Lactated Ringers 1, 1000 000 ml @ 75 mls/hr IV .[id number] [facility] Rx#:[id number] Zosyn 3.375 gm In Dextrose 5% 50 50 50 in Water 50 ml @ 100 mls/hr IV Q6H [facility] Rx#:[id number] Oral 237 650 GI Tube Flush 700 Output: Void Amount 950 3500 Urine/Stool Mix 10 Other: Urine Appearance Clear Urine Color Yellow Pale Urine Odor Normal Exam: looks well, nontoxic, NAD Respiratory Respiratory exam: Present normal respiratory exam Cardiovascular Cardiovascular exam: Present normal rate and rhythm GI/Abdominal Additional comments: soft and non tender, non distended, no mass Extremities Exam Additional comments: well perfused Neurological Exam Additional comments: intact without issue A/P Assessment and plan (1) Abdominal pain: Assessment and plan: Doing Well Home today Clinic follow up in 2 weeks, sooner if need be Status: Acute Time Spent With Patient Time: Total time spent is greater than 50% in coordination of care (as documented) at patient's floor/unit and/or counseling patient:
--- NOTE | 2023-01-15 14:24 | Discharge Summary ---
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 ADMITTING PHYSICIAN: Johnny Lopez M.D. INDICATIONS FOR ADMISSION/HOSPITAL COURSE: The patient is an 87-year-old female who presented to the emergency room on 01/06/2023 with a fairly short duration of abrupt onset abdominal pain and discomfort that felt like a pressure in her belly, along with tremendous pain. She presented to the emergency room late in the night. A CT scan was obtained, which demonstrated findings consistent with a midgut volvulus and possible evolving small-bowel obstruction. We were asked to see her in consultation. We saw her in consultation immediately upon request, but that ended up being roughly [address] scan because of the duration of time that it took for the CT scan to be read. By the time we arrived to see her, she felt that her symptoms had largely resolved and the presenting manifestations of pressure and severe abdominal pain were no longer present. She had not received any narcotic. They appeared to self-resolve. On examination at that time, her belly seemed entirely benign with minimal distention and no discomfort. Based on that and also otherwise normal vital signs, laboratory findings including a normal venous lactate, and most importantly, the feeling that her symptoms had largely resolved without any narcotic administration, we elected to admit her for close observation, rather than proceeding emergently to the operating room in the middle of the night. She was rechecked roughly 3 hours later and continued to feel fine and continued to feel even more that her abdominal symptomatology had fully resolved. Over the next several days, her NG tube was kept in and she was watched for a period of time. Followup plain films were obtained, which appeared normal. Her NG tube was removed. She was cautiously started on a clear liquid diet, which she did well with and progressed well with. On 01/10/2023, we went ahead and repeated an abdominal CT scan to confirm that she had full resolution of all symptomatology and, indeed, the midgut volvulus was shown to be completely resolved on CT, and she was doing clinically well. On 01/11/2023, she was discharged with plans for followup in clinic. At that time, she was feeling entirely back to baseline, tolerating a diet, and had no residual symptomatology. Instructions were provided, of course, to return immediately to the emergency room or seek medical attention immediately for any recurrence of her symptoms and also to follow up with Dr. Lopez in clinic. IN-HOSPITAL PROCEDURES: None. DISPOSITION: Home with plans for followup care in clinic. BW:britt Job ID: [id number] Doc ID: [id number] Johnny Lopez M.D.
== END 2023-01-11 11:45 | disposition home or self-care (01) | DRG 390 ==
LOC: ED 23:34 → MEDSUR 01-06 05:06
PROVIDERS: ADMIT Surgery Surgical Critical Care; ATTEND Surgery Surgical Critical Care